=== PATIENT | female | born 1970 | race Two or more races ===

== ENCOUNTER 2019-09-08 17:20 | Emergency (ER) | payer SELFPAY ==
[~2019-09-08] VITALS: Ht 152.4 cm; Wt 67.1 kg
[2019-09-08 18:53] VITALS: BP 158/87
[2019-09-08] MEDS ORDERED: CEPH-264 PO (19:06)
--- NOTE | 2019-09-08 19:07 | PHYS DOC ---
Past Medical History Attending Signature I have participated in the care of this patient and I have reviewed and agree with all pertinent clinical information above including history, exam, and recommendations. (STEVEN PHOENIX MD) Adult General Chief Complaint Chief Complaint: FOREIGN BODY [facility] HPI Patient is a 49 year old female who presents with a piece of metal stuck in her bellybutton. The patient states that this happened yesterday. She states the area started getting red. Denies fever or any other symptoms. Complete ROS were reviewed and found to be within normal limits, except as documented in the HPI (ZOLTAN ABBOTT APRN) Allergies Allergies Allergies Coded Allergies Type Severity Reaction Last Updated Verified No Known Drug Allergies 09/08/19 No (STEVEN PHOENIX MD) Physical Exam Physical Exam Constitutional: Well developed, well nourished, no acute distress, non-toxic appearance. [] HENT: Normocephalic, atraumatic, bilateral external ears normal, oropharynx m oist, no oral exudates, nose normal. [] Abdomen: See skin. Skin: Small area of erythema noted around navel. No foreign body noted. Neurologic: Alert and oriented X 3, normal motor function, normal sensory function, no focal deficits noted. [] Psychologic: Affect normal, judgement normal, mood normal. [] (ZOLTAN ABBOTT APRN) Current Patient Data Vital Signs Vital Signs Date Time Temp Pulse Resp B/P (MAP) Pulse Ox O2 Delivery O2 Flow Rate FiO2 09/08/19 18:53 98.1 78 17 158/87 (110) 99 Room Air 98.1 (STEVEN PHOENIX MD) EKG EKG [] (ZOLTAN ABBOTT APRN) Radiology/Procedures Radiology/Procedures [] (ZOLTAN ABBOTT APRN) Course & Med Decision Making Course & Med Decision Making Pertinent Labs and Imaging studies reviewed. (See chart for details) We will place the patient on Keflex due to the possible infection. I am a unable to palpate a foreign body and due to the location of the foreign body do not feel comfortable cutting into that area. Will put on antibiotic and see if it works his way out. Discussed with the patient and told her to return if it does not work its way out. (ZOLTAN ABBOTT APRN) Dragon Disclaimer Dragon Disclaimer This electronic medical record was generated, in whole or in part, using a voice recognition dictation system. (ZOLTAN ABBOTT APRN) Departure Departure Impression: Primary Impression: Cellulitis Disposition: 01 HOME, SELF-CARE Condition: STABLE Referrals: NO PCP (PCP) Patient Instructions: Cellulitis Additional Instructions: Thank you for visiting [facility]. We appreciate you trusting us with your care. If any additional problems come up don't hesitate to return to visit us. Please follow up with your primary care provider so they can plan additional care if needed and know about the problem that you had. If symptoms worsen come back to the Emergency Department. Any concerning symptoms that start such as chest pain, shortness of air, weakness or numbness on one side of the body, running high fevers or any other concerning symptoms return to the ER. You have been prescribed an antibiotic today to help fight your infection. Please take all of the antibiotic as directed. If after 48 hours the infection is not improving, please return for more care. If the infection worsens, return to ER for additional care. Scripts Cephalexin (KEFLEX) 500 Mg Capsule 1 CAP PO QID for 7 Days, #28 CAP 0 Refills Prov: ZOLTAN ABBOTT APRN 09/08/19 Problem Qualifiers Primary Impression: Cellulitis Site of cellulitis: trunk Site of cellulitis of trunk: abdominal wall Qualified Codes: L03.311 - Cellulitis of abdominal wall ZOLTAN ABBOTT APRN Sep 08, 2019 19:07 STEVEN PHOENIX MD Sep 08, 2019 20:28
== END 2019-09-08 19:18 | disposition home or self-care (01) ==
LOC: ER 17:20
DX: L03.311 Cellulitis of abdominal wall (principal)
CPT/HCPCS: 99283